=== PATIENT | male | born 1990 | race Caucasian/White ===

== ENCOUNTER 2023-12-21 15:07 | Emergency (ER) | payer OTHER ==
[~2023-12-21] VITALS: Ht 172.7 cm; Wt 72.7 kg
[2023-12-21 15:29] VITALS: O2SAT 98
[2023-12-21] MEDS ORDERED: TOPUD MT (18:15)
[2023-12-21] MEDS ORDERED: IBUP-2029 MT (18:15)
[2023-12-21 18:40] VITALS: BP 129/84; PULSE 83; RESP 18; TEMP 98.5
== END 2023-12-21 18:43 | disposition home or self-care (01) ==
LOC: ER 15:07
DX: S80.12XA Contusion of left lower leg, initial encounter (principal); V00.131A Fall from skateboard, initial encounter; Y93.89 Activity, other specified; Y92.89 Other specified places as the place of occurrence of the external cause; Y99.8 Other external cause status
CPT/HCPCS: 73590; 99283